=== PATIENT | male | born 1950 | race Caucasian/White ===

== ENCOUNTER → 2017-01-15 | Day surgery (SDC) | payer MEDICARE, OTHER ==
[~2017-01-15] VITALS: Ht 172.7 cm; Wt 72.8 kg
[~2017-01-15] MED LIST: ALDACTONE50 MG PO; CARAFATE1 GM PO; CIPRO500 MG PO; CONSTULOSE10 GM/15 M PO; COREG 3.1253.125 MG PO; DIOVAN160 MG; ENULOSE SYRUP1 ML PO; ENULOSE SYRUP1 ML R; FLOMAX0.4 MG PO; GLUCOPHAGE850 MG PO; GUIATUSS AC (D480 ML PO; LANTUS SOL100 UNIT/1 SUB-Q; LASIX20 MG PO; NEURONTIN300 MG PO; NORVASC5 MG PO; PRILOSEC20 MG PO; PROVENTIL OR V6.7 GM INH; TYLENOL ARTHRI650 MG PO; XIFAXAN550 MG PO; ZOCOR40 MG PO; ZYLOPRIM300 MG PO
== END ==
LOC: GPOC 01-13 09:00 → GEND 06:55 → GPOC 07:00
PROC: 0DBH8ZZ Excision of Cecum, Via Natural or Artificial Opening Endoscopic (ICD-10-PCS; principal; 2017-01-15)
PROC: 0DBE8ZZ Excision of Large Intestine, Via Natural or Artificial Opening Endoscopic (ICD-10-PCS; 2017-01-15)
PROC: 06L34CZ Occlusion of Esophageal Vein with Extraluminal Device, Percutaneous Endoscopic Approach (ICD-10-PCS; 2017-01-15)
DX: K63.5 Polyp of colon (principal); I85.00 Esophageal varices without bleeding; K51.40 Inflammatory polyps of colon without complications; K70.30 Alcoholic cirrhosis of liver without ascites; K31.89 Other diseases of stomach and duodenum; I10 Essential (primary) hypertension; E78.5 Hyperlipidemia, unspecified; E11.9 Type 2 diabetes mellitus without complications; Z79.84 Long term (current) use of oral hypoglycemic drugs; Z79.899 Other long term (current) drug therapy
CPT/HCPCS: J2001; J7030

== ENCOUNTER → 2017-01-31 | Day surgery (SDC) | payer MEDICARE, OTHER | END | disposition disaster alternative care site (69) | LOC: GEND 07:28 → GOPP 07:30 | PROC: 0DJ08ZZ Inspection of Upper Intestinal Tract, Via Natural or Artificial Opening Endoscopic (ICD-10-PCS; principal; 2017-01-31) | DX: K70.30 Alcoholic cirrhosis of liver without ascites (principal); K31.89 Other diseases of stomach and duodenum; K22.10 Ulcer of esophagus without bleeding; E11.9 Type 2 diabetes mellitus without complications; Z79.899 Other long term (current) drug therapy; Z98.890 Other specified postprocedural states | CPT/HCPCS: J2001; J7030 ==

== ENCOUNTER → 2017-04-03 | Day surgery (SDC) | payer MEDICARE, OTHER ==
[~2017-04-03] VITALS: Ht 172.7 cm; Wt 77.1 kg
== END | disposition disaster alternative care site (69) ==
LOC: GPOC 04-01 08:00 → GEND 07:25
PROC: 06L34CZ Occlusion of Esophageal Vein with Extraluminal Device, Percutaneous Endoscopic Approach (ICD-10-PCS; principal; 2017-04-03)
DX: I85.00 Esophageal varices without bleeding (principal); K74.60 Unspecified cirrhosis of liver; K31.89 Other diseases of stomach and duodenum; E11.9 Type 2 diabetes mellitus without complications
CPT/HCPCS: J2001; J7030